=== PATIENT | male | born 1955 | race Caucasian/White ===

== ENCOUNTER 2022-02-25 21:22 | Emergency (ER) | payer MEDICARE, OTHER ==
[2022-02-25] MEDS ORDERED: Famotidine 20 MG Tab PO STA (23:50)
== END 2022-02-26 00:16 | disposition home or self-care (01) ==
LOC: JD.ED 21:22
DX: K21.9 Gastro-esophageal reflux disease without esophagitis (principal); I25.10 Atherosclerotic heart disease of native coronary artery without angina pectoris; J44.9 Chronic obstructive pulmonary disease, unspecified; E78.00 Pure hypercholesterolemia, unspecified; E66.9 Obesity, unspecified; Z68.31 Body mass index [BMI] 31.0-31.9, adult; Z79.899 Other long term (current) drug therapy; Z87.891 Personal history of nicotine dependence
CPT/HCPCS: 36415; 71045; 80053; 83735; 84484; 85025; 85379; 85610; 93005; 99284; A9270

== ENCOUNTER 2022-05-29 06:32 | Day surgery (SDC) | payer MEDICARE ==
[~2022-05-29 06:32] MED LIST: Acetaminophen 325 MG Tab PO SCH; Lactated Ringers 1,000 ML IV SCH; Lidocaine 1%/Sod Bicarbonate in NS 8.4% 1 ML Syringe IDERM PRN; Morphine 8 MG, EPINEPHrine 0.3 MG, Cefuroxime 750 MG, Ketorolac 30 MG, Sodium Chloride ... PRN; Pregabalin 25 MG Cap PO SCH; Sodium Chloride 0.9% 10 ML Syringe FLUSH PRN; Sodium Chloride 0.9% 10 ML Syringe FLUSH SCH; oxyCODONE ER 10 MG TAB.ER PO SCH
[2022-05-29] MEDS ORDERED: HYDROmorphone 0.5 MG/0.5 ML Syringe IVPUSH PRN (06:52)
[2022-05-29] MEDS ORDERED: fentaNYL 100 MCG/2 ML SDV IVPUSH PRN (06:52)
[2022-05-29] MEDS ORDERED: Ondansetron 4 MG/2 ML SDV IVPUSH PRN (06:52)
[2022-05-29] MEDS ORDERED: Midazolam 1 MG/ML 2 ML SDV ONE (07:03)
[2022-05-29] MEDS ORDERED: Lidocaine 1% 5 ML VIAL ONE (07:03)
[2022-05-29] MEDS ORDERED: Propofol 200 MG/20 ML SDV ONE ×4 (07:03→08:28)
[2022-05-29] MEDS ORDERED: fentaNYL 100 MCG/2 ML SDV ONE (07:04)
[2022-05-29] MEDS ORDERED: ceFAZolin 2 GM Vial ONE (07:28)
[2022-05-29] MEDS ORDERED: ePHEDrine 50 MG/ML SDV ONE (09:11)
[2022-05-29] MEDS ORDERED: Tranexamic Acid 1,000 MG/10 ML Vial ONE (09:45)
[2022-05-29] MEDS ORDERED: Vancomycin 1 GM SDV ONE (09:45)
[2022-05-29] MEDS ORDERED: oxyCODONE 5 MG Tab PO SCH (10:18)
[2022-05-29] MEDS ORDERED: Cyclobenzaprine 10 MG Tab PO SCH (11:44)
[2022-05-29] MEDS ORDERED: Scopolamine 1.5 MG Transdermal Patch TOP SCH (12:56)
== END 2022-05-29 13:27 | disposition home or self-care (01) ==
LOC: JD.SDS 06:32
PROVIDERS: ATTEND Orthopaedic Surgery
DX: M16.0 Bilateral primary osteoarthritis of hip (principal); I25.10 Atherosclerotic heart disease of native coronary artery without angina pectoris; N40.0 Benign prostatic hyperplasia without lower urinary tract symptoms; E78.00 Pure hypercholesterolemia, unspecified; E66.9 Obesity, unspecified; Z95.5 Presence of coronary angioplasty implant and graft; Z79.899 Other long term (current) drug therapy; Z98.890 Other specified postprocedural states; Z87.891 Personal history of nicotine dependence; Z79.82 Long term (current) use of aspirin; Z68.33 Body mass index [BMI] 33.0-33.9, adult
CPT/HCPCS: 0055T; 27130; 36415; 73501; 86850; 86900; 86901; 97110; 97116; 97161; A9270; C1713; C1776; J0171; J0690; J0697; J1885; J2250; J2270; J2405; J2704; J3010; J3370; J7120; 01214; J3490

== ENCOUNTER 2022-08-09 07:02 | Day surgery (SDC) | payer MEDICARE ==
[~2022-08-09 07:02] MED LIST changes: -Lactated Ringers 1,000 ML IV SCH; -Morphine 8 MG, EPINEPHrine 0.3 MG, Cefuroxime 750 MG, Ketorolac 30 MG, Sodium Chloride ... PRN
[2022-08-09] MEDS: Lactated Ringers 1,000 ML IV SCH ×2 (07:20→13:15)
[2022-08-09] MEDS ORDERED: Pregabalin 25 MG Cap PO SCH (07:30)
[2022-08-09] MEDS ORDERED: Midazolam 1 MG/ML 2 ML SDV ONE (07:58)
[2022-08-09] MEDS ORDERED: ceFAZolin 2 GM Vial ONE (07:58)
[2022-08-09] MEDS ORDERED: Propofol 200 MG/20 ML SDV ONE ×2 (07:58→09:35)
[2022-08-09] MEDS ORDERED: fentaNYL 100 MCG/2 ML SDV ONE (07:58)
[2022-08-09] MEDS ORDERED: ePHEDrine 50 MG/ML SDV ONE (09:04)
[2022-08-09] MEDS ORDERED: Lactated Ringers 1,000 ML ONE (09:11)
[2022-08-09] MEDS: Tranexamic Acid 1,000 MG/10 ML Vial ONE ×2 (09:12→09:34)
[2022-08-09] MEDS: Vancomycin 1 GM SDV ONE ×2 (09:12→09:34)
[2022-08-09] MEDS: Morphine 8 MG, EPINEPHrine 0.3 MG, Cefuroxime 750 MG, Ketorolac 30 MG, Sodium Chloride ... PRN ×10 (09:13→09:33)
[2022-08-09] MEDS ORDERED: HYDROmorphone 0.5 MG/0.5 ML Syringe IVPUSH PRN (10:05)
[2022-08-09] MEDS ORDERED: fentaNYL 100 MCG/2 ML SDV IVPUSH PRN (10:05)
[2022-08-09] MEDS ORDERED: Ondansetron 4 MG/2 ML SDV IVPUSH PRN (10:05)
[2022-08-09] MEDS ORDERED: oxyCODONE 5 MG Tab PO PRN (10:28)
[2022-08-09] MEDS ORDERED: Scopolamine 1.5 MG Transdermal Patch TRDERM SCH (12:44)
== END 2022-08-09 14:05 | disposition home or self-care (01) ==
LOC: JD.SDS 07:02
PROVIDERS: ATTEND Orthopaedic Surgery
DX: M16.12 Unilateral primary osteoarthritis, left hip (principal); I25.10 Atherosclerotic heart disease of native coronary artery without angina pectoris; I48.91 Unspecified atrial fibrillation; N40.0 Benign prostatic hyperplasia without lower urinary tract symptoms; Z79.899 Other long term (current) drug therapy; Z98.890 Other specified postprocedural states; Z87.891 Personal history of nicotine dependence; Z98.1 Arthrodesis status; Z95.5 Presence of coronary angioplasty implant and graft
CPT/HCPCS: 0055T; 27130; 36415; 73501; 86850; 86900; 86901; 97116; 97161; A9270; C1713; C1776; J0171; J0690; J0697; J1885; J2250; J2270; J2405; J2704; J3010; J3370; J7120; 01214; J3490

== ENCOUNTER → 2023-04-18 | Day surgery (SDC) | payer MEDICARE ==
[~2023-04-18] MED LIST changes: -Acetaminophen 325 MG Tab PO SCH; +Benzocaine 20% Topical Spray UD ONE; +Lactated Ringers 1,000 ML IV SCH; +Lactated Ringers 1,000 ML ONE; -Lidocaine 1%/Sod Bicarbonate in NS 8.4% 1 ML Syringe IDERM PRN; +Lidocaine 2% 5 ML SDV ONE; -Pregabalin 25 MG Cap PO SCH; +Propofol 200 MG/20 ML SDV ONE; -oxyCODONE ER 10 MG TAB.ER PO SCH
== END | disposition home or self-care (01) ==
LOC: JD.SDS 07:16
PROVIDERS: ATTEND Surgery
DX: Z12.11 Encounter for screening for malignant neoplasm of colon (principal); D12.0 Benign neoplasm of cecum; D12.2 Benign neoplasm of ascending colon; D12.5 Benign neoplasm of sigmoid colon; D12.8 Benign neoplasm of rectum; K22.2 Esophageal obstruction; K21.00 Gastro-esophageal reflux disease with esophagitis, without bleeding; K57.30 Diverticulosis of large intestine without perforation or abscess without bleeding; K64.8 Other hemorrhoids; K29.80 Duodenitis without bleeding; K29.70 Gastritis, unspecified, without bleeding; J44.9 Chronic obstructive pulmonary disease, unspecified; I25.10 Atherosclerotic heart disease of native coronary artery without angina pectoris; N40.0 Benign prostatic hyperplasia without lower urinary tract symptoms; E66.9 Obesity, unspecified; Z68.33 Body mass index [BMI] 33.0-33.9, adult; Z95.5 Presence of coronary angioplasty implant and graft; Z87.891 Personal history of nicotine dependence; Z79.82 Long term (current) use of aspirin; Z79.02 Long term (current) use of antithrombotics/antiplatelets; Z79.899 Other long term (current) drug therapy
CPT/HCPCS: 43239; 45380; J2704; J7120; 00813; A9270-GY; J3490

== ENCOUNTER 2023-12-13 23:40 | Emergency (ER) | payer MEDICARE ==
[2023-12-14] MEDS: Glucagon,Human Recombinant 1 MG Vial IVPUSH ONE (00:35)
[2023-12-14] MEDS: Nitroglycerin 0.4 MG Tab.SL SL ONE (01:40)
[2023-12-14] MEDS: Prochlorperazine 5 MG in Sodium Chloride 0.9% 50 ML IV ONE (02:56)
== END 2023-12-14 04:06 | disposition home or self-care (01) ==
LOC: JD.ED 23:40
DX: R13.19 Other dysphagia (principal); I25.10 Atherosclerotic heart disease of native coronary artery without angina pectoris; J44.9 Chronic obstructive pulmonary disease, unspecified; E66.9 Obesity, unspecified; Z95.5 Presence of coronary angioplasty implant and graft; Z79.899 Other long term (current) drug therapy; Z68.30 Body mass index [BMI] 30.0-30.9, adult
CPT/HCPCS: 96365; 96375; 99283; A9270; J0780; J1611; J3490